=== PATIENT | male | born 1995 | race Two or more races ===

== ENCOUNTER 2016-10-10 21:08 | Emergency (ER) | payer OTHER ==
[2016-10-11] MEDS ORDERED: ACETAMINOPHEN 325 MG TABLET ONE (00:17)
[2016-10-11] MEDS ORDERED: MAALOX/LIDO2%VISC/SIMETHICONE 40 ML BOT ONE (00:17)
[2016-10-11] MEDS ORDERED: IBUPROFEN 600 MG TABLET ONE (00:17)
[2016-10-11] MEDS ORDERED: FAMOTIDINE 20 MG TABLET ONE (00:18)
[2016-10-11] MEDS ORDERED: SUCRALFATE 1 G/10 ML DOSE ONE (00:18)
--- NOTE | 2016-10-11 07:54 | RAD ---
Name: FREEMAN MCMILLAN Exam: Two-view chest Comparison: 09-28-11 Clinical history: Chest pain Findings: 2 views of the chest are submitted. This is a low-volume exam contributing to prominence of the heart. Mediastinum and hilar structures normal. There is elevation left hemidiaphragm with small amount of adjacent atelectasis. There is no dense consolidation, pleural effusion or pneumothorax. Regional skeleton is within normal limits. Impression: Hypoventilatory exam with mild elevation left hemidiaphragm. There is adjacent subsegmental atelectasis.
== END 2016-10-11 00:47 | disposition home or self-care (01) ==
LOC: ED 21:08
DX: R07.9 Chest pain, unspecified (principal)
CPT/HCPCS: 71020; 99283; 99284; A9270 ×5